=== PATIENT | female | born 1990 | race Two or more races ===

== ENCOUNTER 2021-01-20 22:27 | Emergency (ER) | payer OTHER ==
[~2021-01-20] VITALS: Ht 160 cm; Wt 68.0 kg
[~2021-01-20 22:27] MED LIST: PRENATAL1 TAB PO
== END 2021-01-20 23:42 | disposition home or self-care (01) ==
LOC: ER 22:27
DX: R53.1 Weakness (principal); Z11.52 Encounter for screening for COVID-19